=== PATIENT | female | born 1975 | race Caucasian/White ===

== ENCOUNTER 2018-09-23 04:00 | Emergency (ER) | payer OTHER ==
[2018-09-23 05:05] VITALS: BP 114/78; PULSE 92; TEMP 98.1; BMI 26.5
--- NOTE | 2018-09-23 05:09 | PDOC ---
History of Present Illness - General Chief Complaint: Pain, Acute Stated Complaint: ABDOMINAL PAIN - History of Present Illness Initial Comments: Destiny Ramirez is a 42yo woman with a PMH of gastritis and pre-DM who presents reporting worsening abdominal pain since Sunday morning. She states that it is over her entire abdomen equally and is unable to specify whether one area hurts more. She denies any nausea, vomiting, constipation, diarrhea, bloating, dysuria, or vaginal discharge. Her LMP was 5 days ago and she does not believe she could be . She reports that she has been able to eat without any difficulty. Past History - Past Medical History Allergies/Adverse Reactions: Allergies Allergy/AdvReac Type Severity Reaction Status Date / Time No Known Allergies Allergy Verified 09/23/18 04:22 Home Medications: Ambulatory Orders No Home Medications 0 dose .ROUTE UTDICT 10/01/13 COPD: No GI Disorders: Yes (gastritis) - Suicide/Smoking/Psychosocial Hx Smoking History: Never smoked Have you smoked in the past 12 months: No Hx Alcohol Use: No Substance Use Type: None Review of Systems - Review of Systems Comments:: General: No fevers, no chills, no weight or appetite change, no malaise HEENT: No changes in vision, no changes in hearing, no congestion, no sore throat CV: No chest pain, no palpitations, no LE edema Pulm: No SOB, no cough, no wheezing GI: No nausea or vomiting, no change in bowel habits, no melena. +abdominal pain : No frequency, no urgency, no dysuria Musc: No back pain, no joint swelling, no recent injury Skin: No rash, no lesions, no erythema Endo: No excessive thirst, no heat/cold intolerance Heme: No unusual bruising or bleeding, no swollen glands Neuro: No syncope, no numbness/tingling, no focal weakness Vasc: No claudication Psych: No recent change in mood, no SI or HI *Physical Exam - Vital Signs Last Vital Signs Temp Pulse Resp BP Pulse Ox 98.1 F 92 H 18 114/78 100 09/23/18 04:22 09/23/18 04:22 09/23/18 04:22 09/23/18 04:22 09/23/18 04:22 - Physical Exam Comments: General: Comfortable, no acute distress HEENT: PERRL, EOMI, MMM, voice normal, normal neck ROM, no LAD Cards: RRR, no murmur appreciated Pulm: Comfortable on room air, clear to auscultation bilaterally Abd: Soft, nontender, nondistended : No CVA tenderness. Normal external genitalia. Vaginal canal w/ physiologic discharge, slightly enlarged cervix w/ scant bloody discharge. No CMT or adnexal tenderness Ext: Atraumatic. No LE edema. ROM intact. Strength 5/5 and equal bilaterally Vasc: Extremities WWP. Skin: Normal color, no rashes or lesions Neuro: A&Ox3, CN grossly intact, normal speech, motor/sensory grossly intact and symmetric Psych: Mood appropriate to situation ED Treatment Course - LABORATORY CBC & Chemistry Diagram: 09/23/18 05:20 09/23/18 05:20 Medical Decision Making - Medical Decision Making 09/23/18 05:03 Destiny Ramirez is a 42yo woman with a PMH of gastritis and pre-DM who presents reporting worsening abdominal pain since Sunday morning. She states that it is over her entire abdomen equally and is unable to specify whether one area hurts more. She denies any nausea, vomiting, constipation, diarrhea, bloating, dysuria, or vaginal discharge. Her LMP was 5 days ago and she does not believe she could be . She reports that she has been able to eat without any difficulty. - Ddx includes gastritis, gastroenteritis, less likely appendicitis, cholecystitis, pancreatitis given lack of focal symptoms and tolerating diet. More TTP in lower abdomen on exam, could be cystitis, PID - CBC, CMP, UA, test 09/23/18 06:36 - GC/chlamydia sent due to enlarge cervix on pelvic exam - Labs w/ slight leukocytosis to 12, otherwise unremarkable. UA negative, test negative - Pt taken to CT 09/23/18 07:20 - Pt signed out to Dr Ziegler for the remainder of her ED care. Discussed with Dr Engle. Bambi Riggs PGY1 *DC/Admit/Observation/Transfer Diagnosis at time of Disposition: Abdominal pain - Referrals - Patient Instructions - Post Discharge Activity
[2018-09-23 05:35] LABS: BASO % 0.8 % (0-2.0); EOS % 0.3 % (0-4.5); HEMOGLOBIN 12.8 GM/dL (10.7-15.3); LYMPH % 11.2 % (8-40); MCH 27.8 pg (25.7-33.7); MCHC 33.6 g/dl (32.0-36.0); MEAN CELL VOLUME 82.7 fl (80-96); MEAN PLT VOLUME 8.3 fl (7.5-11.1); MONO % 4.6 % (3.8-10.2); NEUT % 83.1 % (42.8-82.8); PLATELET COUNT 400 K/MM3 (134-434); RBC 4.59 M/mm3 (3.60-5.2); RDW 14.8 % (11.6-15.6); WHITE BLOOD COUNT 12.2 K/mm3 (4.0-10.0)
[2018-09-23] MEDS ORDERED: SODIUM CHLORIDE 0.9% 1000 ML INFUS.BAG IV ONE (05:37)
[2018-09-23 05:39] LABS: URINE APPEARANCE CLEAR; URINE BILIRUBIN NEGATIVE (NEGATIVE); URINE COLOR YELLOW; URINE GLUCOSE (UA) NEGATIVE (NEGATIVE); URINE KETONE NEGATIVE (NEGATIVE); URINE LEUK ESTERASE NEGATIVE (NEGATIVE); URINE NITRITE NEGATIVE (NEGATIVE); URINE PROTEIN NEGATIVE (NEGATIVE); URINE UROBILINOGEN 0.2 mg/dL (0.2-1.0)
[2018-09-23 05:41] LABS: HCG,QUALITATIVE URINE Negative
[2018-09-23 06:05] LABS: ALBUMIN 3.7 g/dl (3.4-5.0); BILIRUBIN,TOTAL 0.4 mg/dL (0.2-1); CALCIUM 8.7 mg/dL (8.5-10.1); CREATININE 0.7 mg/dL (0.55-1.3); POTASSIUM 4.5 mmol/L (3.5-5.1); TOT PROT 7.7 g/dl (6.4-8.2)
[2018-09-23] MEDS ORDERED: ACETAMINOPHEN 1000 MG/100 ML VIAL (NON FORMULARY) IVPB ONE (06:07)
--- NOTE | 2018-09-23 06:07 | PDOC ---
Attending Attestation - Resident Resident Name: Bambi Riggs - ED Attending Attestation I have performed the following: I have examined & evaluated the patient, The case was reviewed & discussed with the resident, I agree w/resident's findings & plan, Exceptions are as noted - HPI HPI: 09/23/18 06:03 43 yo f with h/o gastritis, pre DM here with c/o generalized abd pain, worse in lower surpapubic region, and epigastric region no n/v no urinary complaints. no n/v did have subjective fevers but did not check. no h/o similar previous pain, no h/o renal colic, no h/o ovarian cyst. no mod factors. - Physicial Exam PE: 09/23/18 06:06 awake alert lungs clear bilaterally heart rrr no mrg abd soft mild suprapubic ttp. llq ttp. epigastric tttp. no rebound no guarding no cva tenderness. skin warm and dry. nuero alert oriented x 3. - Medical Decision Making 09/23/18 06:06 43 yo f with suprapubic ttp llq ttp. abd pain . differential diverticulitis, pelvic pathology uti, renal colic, colitis, plan ct a/p labs ua ucg. ivf, pain control. pt wants tylenol.
[2018-09-23] MEDS ORDERED: ACETAMINOPHEN INJECTION 100 ML IVPB ONE (06:12)
--- NOTE | 2018-09-23 08:27 | PDOC ---
*Physical Exam - Vital Signs Last Vital Signs Temp Pulse Resp BP Pulse Ox 98.1 F 92 H 18 114/78 100 09/23/18 04:22 09/23/18 04:22 09/23/18 04:22 09/23/18 04:22 09/23/18 04:22 - Physical Exam Comments: 09/23/18 08:22 Destiny Ramirez is a 42yo woman with a PMH of gastritis and pre-DM who presents reporting worsening abdominal pain since Sunday morning. CT abdomen shows moderated stool impaction. Will give stool softener and follow up with PMD. General Appearance: Yes: Appropriately Dressed. No: Apparent Distress HEENT: positive: PETROS Neck: positive: Supple Respiratory/Chest: positive: Lungs Clear, Normal Breath Sounds Cardiovascular: positive: Regular Rhythm, Regular Rate, S1, S2. negative: Edema , JVD, Murmur Gastrointestinal/Abdominal: positive: Normal Bowel Sounds, Flat, Soft. negative : Guarding, Rebound, Tenderness Musculoskeletal: negative: CVA Tenderness ED Treatment Course - LABORATORY CBC & Chemistry Diagram: 09/23/18 05:20 09/23/18 05:20 - ADDITIONAL ORDERS Additional order review: Laboratory Results 09/23/18 09/23/18 05:20 05:20 Sodium 138 Potassium 4.5 Chloride 105 Carbon Dioxide 27 Anion Gap 6 L BUN 11 Creatinine 0.7 Est GFR (CKD-EPI)AfAm 122.99 Est GFR (CKD-EPI)NonAf 106.12 Random Glucose 104 Calcium 8.7 Total Bilirubin 0.4 AST 28 ALT 24 Alkaline Phosphatase 53 Total Protein 7.7 Albumin 3.7 Urine Color Yellow Urine Appearance Clear Urine pH 8.0 Ur Specific [place] 1.015 Urine Protein Negative Urine Glucose (UA) Negative Urine Ketones Negative Urine Blood Negative Urine Nitrite Negative Urine Bilirubin Negative Urine Urobilinogen 0.2 Ur Leukocyte Esterase Negative Urine HCG, Qual Negative 09/23/18 05:20 RBC 4.59 MCV 82.7 MCHC 33.6 RDW 14.8 MPV 8.3 Neutrophils % 83.1 H D Lymphocytes % 11.2 D Monocytes % 4.6 Eosinophils % 0.3 D Basophils % 0.8 - Medications Given in the ED: ED Medications Discontinued Medications Generic Name Dose Route Start Last Admin Trade Name Freq PRN Reason Stop Dose Admin Acetaminophen 1,000 mg 09/23/18 06:07 09/23/18 06:17 Ofirmev Injection - IVPB 09/23/18 06:08 1,000 mg ONCE ONE Administration Sodium Chloride 1,000 ml 09/23/18 05:37 09/23/18 05:43 Normal Saline - IV 09/23/18 05:38 1,000 ml ONCE ONE Administration *DC/Admit/Observation/Transfer Diagnosis at time of Disposition: Abdominal pain Qualifiers: Abdominal location: generalized Qualified Code(s): R10.84 - Generalized abdominal pain - Discharge Dispostion Disposition: HOME Condition at time of disposition: Stable Decision to Admit order: No - Prescriptions Prescriptions: Docusate Sodium [Colace] 100 mg PO TID 3 Days #9 capsule - Referrals - Patient Instructions Printed Discharge Instructions: DI for Constipation Additional Instructions: Increase activity as tolerated. Resume a high fiber diet. Stool softener medication has been sent to your pharmacy , please take medication three times a day for 3 days. Follow up with your primary doctor in the next few days. If pain worsens or your develop fever or chills please return to ER immediately. [place]: Aumentar la actividad segn lo tolerado. Reanudar farhat dieta kay en fibra. El medicamento suavizante de heces alvarado sido enviado a vernon farmacia, tome los medicamentos sophia veces al da arabella 3 butt. Sarahy un seguimiento con vernon mdico de cabecera en los prximos butt. Si el dolor empeora o presenta fiebre o escalofros, vuelva a la david de emergencias inmediatamente. Print Language: UKRAINIAN - Post Discharge Activity
== END 2018-09-23 08:44 | disposition home or self-care (01) ==
LOC: JER 04:00
PROC: 3E033NZ Introduction of Analgesics, Hypnotics, Sedatives into Peripheral Vein, Percutaneous Approach (ICD-10-PCS; principal; 2018-09-23)
DX: R10.84 Generalized abdominal pain (principal); R73.03 Prediabetes
CPT/HCPCS: 36415; 74177-TC; 80053; 81003; 84703; 85025; 87086; 87491; 87591; 96374; 99283-25; J0131; J7030

== ENCOUNTER 2018-09-23 14:44 | Inpatient (IN) | payer OTHER | END 2018-09-27 16:26 | disposition home or self-care (01) | LOC: J8W 09-24 01:26 → JER 14:44 → JERBED 21:10 ==

== ENCOUNTER 2021-02-22 18:04 | Emergency (ER) | payer OTHER ==
[2021-02-22 18:17] VITALS: TEMP 98.5; BMI 29.9
[2021-02-22 21:38] LABS: EPI CELLS 3 /uL (0-25.1); HYALINE CASTS 0 /uL (0-3.1); PH,URINE 6.5 (5.0-8.0); URINE APPEARANCE CLEAR; URINE BACTERIA 7 /uL (0-1359); URINE BILIRUBIN NEGATIVE (NEGATIVE); URINE COLOR YELLOW; URINE GLUCOSE (UA) NEGATIVE (NEGATIVE); URINE KETONE NEGATIVE (NEGATIVE); URINE LEUK ESTERASE NEGATIVE (NEGATIVE); URINE NITRITE NEGATIVE (NEGATIVE); URINE PROTEIN NEGATIVE (NEGATIVE); URINE RBC 984 /uL (0-23.9); URINE UROBILINOGEN 0.2 mg/dL (0.2-1.0); URINE WBC 2 /uL (0-25.8)
[2021-02-22 22:00] LABS: BASO % 0.6 % (0-2.0); EOS % 1.9 % (0-4.5); HEMATOCRIT 37.7 % (32.4-45.2); HEMOGLOBIN 12.9 GM/dL (10.7-15.3); LYMPH % 44.6 % (8-40); MCHC 34.1 g/dl (32.0-36.0); MEAN CELL VOLUME 85.2 fl (80-96); MEAN PLT VOLUME 8.3 fl (7.5-11.1); MONO % 6.1 % (3.8-10.2); NEUT % 46.8 % (42.8-82.8); PLATELET COUNT 460 10^3/uL (134-434); RBC 4.43 M/mm3 (3.60-5.2); RDW 14.9 % (11.6-15.6)
[2021-02-22 22:09] LABS: INR 1.07 (0.83-1.09)
[2021-02-22 22:12] LABS: ACTIVATED PTT 27.5 SECONDS (25.2-36.5)
[2021-02-22 22:31] LABS: CHLORIDE 105 mmol/L (98-107); SODIUM 137 mmol/L (136-145)
[2021-02-22 22:33] LABS: ALBUMIN 3.4 g/dl (3.4-5.0); BLOOD UREA NITROGEN 19.2 mg/dL (7-18); CO2 24 mmol/L (21-32)
[2021-02-22 22:34] LABS: GLUCOSE,RANDOM 86 mg/dL (74-106)
[2021-02-22 22:36] LABS: CREATININE 0.9 mg/dL (0.55-1.3); SGOT/AST 52 U/L (15-37); SGPT/ALT 27 U/L (13-61)
[2021-02-22 22:38] LABS: BILIRUBIN,TOTAL 0.2 mg/dL (0.2-1); TOT PROT 7.8 g/dl (6.4-8.2)
[2021-02-22 22:39] LABS: ALK PHOS 59 U/L (45-117)
[2021-02-22 22:46] LABS: ANION GAP 8 MMOL/L (8-16)
[2021-02-23 00:17] VITALS: BP 144/82; PULSE 68
== END 2021-02-23 00:18 | disposition home or self-care (01) ==
LOC: JER 18:04
DX: D25.9 Leiomyoma of uterus, unspecified (principal); N93.9 Abnormal uterine and vaginal bleeding, unspecified
CPT/HCPCS: 36415; 76830-TC; 80053; 81003; 84132; 84703; 85025; 85610; 85730; 86850; 86900; 86901; 93005; 93010; 99285-25

== ENCOUNTER 2022-01-03 15:00 | Emergency (ER) | payer OTHER ==
[2022-01-03 15:16] VITALS: BP 139/87; PULSE 72; RESP 18; TEMP 98; BMI 27.5
[2022-01-03] MEDS ORDERED: IBUPROFEN 600 MG TABLET (FP) PO ONE ×2 (16:27→16:41)
[2022-01-03] MEDS ORDERED: ACETAMINOPHEN 325 MG TABLET (FP) PO ONE (16:27)
[2022-01-03] MEDS ORDERED: ACETAMINOPHEN 325 MG TABLET (FP) ONE (16:41)
[2022-01-03 19:17] LABS: THROAT:GRP A STREP NOT DETECTED (NOTDETECTED)
== END 2022-01-03 20:30 | disposition home or self-care (01) ==
LOC: JER 15:00
DX: U07.1 COVID-19 (principal)
CPT/HCPCS: 0241U-QW; 71046-TC-FY; 87651; 99284-25

== ENCOUNTER 2022-11-10 12:02 | Emergency (ER) | payer OTHER ==
[2022-11-10 12:20] VITALS: BP 115/82; PULSE 71; RESP 17; TEMP 98.8; BMI 25.3
[2022-11-10] MEDS ORDERED: KETOROLAC TROMETHAMINE 15 MG/ML VIAL IM ONE (12:58)
[2022-11-10] MEDS ORDERED: DEXAMETHASONE LIQUID 0.5 MG/5 ML PO ONE (12:59)
[2022-11-10] MEDS ORDERED: DEXAMETHASONE SOD PHOSPHATE 10 MG/1 ML VIAL ONE (13:01)
[2022-11-10] MEDS ORDERED: KETOROLAC TROMETHAMINE 15 MG/ML VIAL ONE (13:01)
[2022-11-10] MEDS ORDERED: LIDOCAINE VISCOUS 2% ORAL/TOP 15 ML UNIT-DOSE CUP MM ONE (13:29)
[2022-11-10] MEDS ORDERED: MAG HYDROX/ALH/SMC/DPHA/LIDO 240 ML MOUTHWASH MM STA (13:53)
[2022-11-10] MEDS ORDERED: PENICILLIN G BENZATHINE 1,200,000 UNIT/2 ML PFS IM ONE (14:11)
== END 2022-11-10 14:39 | disposition home or self-care (01) ==
LOC: JERFT 12:02
PROC: 3E0233Z Introduction of Anti-inflammatory into Muscle, Percutaneous Approach (ICD-10-PCS; principal; 2022-11-10)
PROC: 3E023GC Introduction of Other Therapeutic Substance into Muscle, Percutaneous Approach (ICD-10-PCS; 2022-11-10)
DX: J02.0 Streptococcal pharyngitis (principal); M79.10 Myalgia, unspecified site; R13.10 Dysphagia, unspecified; Z20.822 Contact with and (suspected) exposure to COVID-19
CPT/HCPCS: 0241U-QW; 87651; 96372; 99284-25

== ENCOUNTER 2023-08-15 11:24 | Emergency (ER) | payer OTHER ==
[2023-08-15 11:27] VITALS: BP 138/84; PULSE 69; RESP 18; TEMP 98.4; BMI 24.4
[2023-08-15] MEDS ORDERED: ACETAMINOPHEN 500 MG TABLET (FP) ONE (12:50)
[2023-08-15] MEDS ORDERED: IBUPROFEN 600 MG TABLET (FP) PO ONE (12:50)
[2023-08-15] MEDS: IBUPROFEN 600 MG TABLET (FP) PO ONE (12:53)
[2023-08-15] MEDS: ACETAMINOPHEN 500 MG TABLET (FP) PO ONE (12:53)
[2023-08-15 13:27] LABS: THROAT:GRP A STREP NOT DETECTED (NOTDETECTED)
== END 2023-08-15 15:28 | disposition home or self-care (01) ==
LOC: JERFT 11:24
DX: J02.9 Acute pharyngitis, unspecified (principal); J32.9 Chronic sinusitis, unspecified; J31.0 Chronic rhinitis; R50.9 Fever, unspecified; R51.9 Headache, unspecified; R09.81 Nasal congestion; R05.9 Cough, unspecified; R09.89 Other specified symptoms and signs involving the circulatory and respiratory systems; Z20.822 Contact with and (suspected) exposure to COVID-19
CPT/HCPCS: 0241U-QW; 87651; 99283-25

== ENCOUNTER 2023-12-17 21:33 | Emergency (ER) | payer OTHER ==
[2023-12-17 21:37] VITALS: BP 158/92; PULSE 58; RESP 17; TEMP 98.1; BMI 25.7
[2023-12-17] MEDS ORDERED: DIPHTH,PERTUSS(ACELL),TET 0.5 ML DISP.SYRIN IM ONE (22:26)
[2023-12-17] MEDS: DIPHTH,PERTUSS(ACELL),TET 0.5 ML DISP.SYRIN IM ONE (22:26)
== END 2023-12-17 22:35 | disposition home or self-care (01) ==
LOC: JERFT 21:33
PROC: 0XQMXZZ Repair Left Thumb, External Approach (ICD-10-PCS; principal; 2023-12-17)
PROC: 3E0234Z Introduction of Serum, Toxoid and Vaccine into Muscle, Percutaneous Approach (ICD-10-PCS; 2023-12-17)
DX: S61.012A Laceration without foreign body of left thumb without damage to nail, initial encounter (principal); X58.XXXA Exposure to other specified factors, initial encounter; Z23 Encounter for immunization
CPT/HCPCS: 12002-25; 90471; 90715; 99283-25